=== PATIENT | male | born 1950 | race American Indian/Alaskan Native ===

== ENCOUNTER 2017-11-17 16:59 | Emergency (ER) | payer SELFPAY ==
[2017-11-17 17:21] VITALS: BP 132/67
[2017-11-17 18:24] LABS: Basophils % (Auto) 0.5 % (0.0-1.8); Eosinophils % (Auto) 0.4 % (0.0-4.3); Hematocrit 43.5 % (35.5-45.6); Lymphocytes # (Auto) 1.4 K/mm3 (1.2-5.4); Lymphocytes % (Auto) 17.6 % (13.4-35.0); Mean Corpuscular HGB Conc 32 % (32-34); Mean Corpuscular Hemoglobin 28 pg (28-32); Mean Corpuscular Volume 86 fl (84-94); Monocytes # (Auto) 0.9 K/mm3 (0.0-0.8); Monocytes % (Auto) 11.9 % (0.0-7.3); Platelet Count 183 K/mm3 (140-440); Red Blood Count 5.04 M/mm3 (3.65-5.03); Red Cell Distribution Width 14.8 % (13.2-15.2)
--- NOTE | 2017-11-17 18:45 | Cat Scan Report ---
FINAL REPORT PROCEDURE: CT HEAD/BRAIN WO CON TECHNIQUE: Computerized tomography of the head was performed without contrast material. HISTORY: . Neurological deficits COMPARISON: No prior studies are available for comparison. FINDINGS: There is no CT evidence of intracranial mass, hemorrhage, acute territorial infarction, or hydrocephalus. The intracranial arteries are symmetric in density. The calvarium is intact. The visualized paranasal sinuses and mastoids are aerated. IMPRESSION: No CT evidence of acute intracranial abnormality
[2017-11-17 18:48] LABS: Calcium 9.1 mg/dL (8.4-10.2)
[2017-11-17 22:01] LABS: Bilirubin,Urine NEG (Negative); Blood,Urine SM (Negative); Color,Urine Yellow (Yellow); Mucus,Urine FEW /HPF; Nitrite,Urine NEG (Negative); Protein,Urine <15 mg/dL mg/dL (Negative); Urobilinogen,Urine < 2.0 mg/dL (<2.0)
== END 2017-11-17 18:35 | disposition left against medical advice (07) ==
LOC: ED 16:59
DX: Z53.21 Procedure and treatment not carried out due to patient leaving prior to being seen by health care provider (principal)
CPT/HCPCS: 36415; 70450; 80053; 81001; 85025

== ENCOUNTER 2017-11-18 12:41 | Emergency (ER) | payer SELFPAY ==
[2017-11-18 13:22] VITALS: BP 119/75
== END 2017-11-18 16:30 | disposition left against medical advice (07) ==
LOC: ED 12:41
DX: R20.0 Anesthesia of skin (principal); Z53.21 Procedure and treatment not carried out due to patient leaving prior to being seen by health care provider

== ENCOUNTER 2020-10-01 00:16 | Emergency (ER) | payer MEDICARE ==
--- NOTE | 2020-10-01 00:30 | Emergency Department Report ---
ED CPR HPI - General Chief Complaint: Cardiac Arrest/CPR Stated Complaint: UNRESPONSIVE Time Seen by Provider: 10/01/20 00:16 Source: EMS Mode of arrival: Stretcher Limitations: Altered Mental Status, Physical Limitation - History of Present Illness Initial Comments: Patient is a 70-year-old male that presents emergency room and a cardiac arrest. Patient brought in by EMS. EMS states that the downtime is unknown. Last known well time was 11 PM. Patient brought in by EMS if EMS initiated CPR. EMS intubated the patient and gave 3 rounds of epi. Patient has been asystole on the monitor. MD Complaint: found unresponsive -: unknown Place: home Bystander CPR Performed: No AED Applied by Bystander/Design Assembler: No Shock Advised: No Initial Findings in the Field: unresponsive, no respirations, no pulse ROSC in the Field: No Associated Injuries: No Treatments Prior to Arrival: intubation, BMV, chest compressions, epinephrine mgs # - Related Data Allergies Allergy/AdvReac Type Severity Reaction Status Date / Time No Known Allergies Allergy Unverified 11/17/17 17:17 ED Review of Systems ROS: Stated complaint: UNRESPONSIVE Other details as noted in HPI Comment: Unobtainable due to pts medical conditions ED Past Medical Hx - Past Medical History Previous Medical History?: Yes Hx Hypertension: Yes Hx Diabetes: Yes Additional medical history: high cholesterol, 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 - Surgical History Past Surgical History?: No - Family History Family history: no significant - Social History Smoking Status: Never Smoker Substance Use Type: None ED Physical Exam - General Limitations: Altered Mental Status, Physical Limitation General appearance: obtunded - Head Head exam: Present: atraumatic, normocephalic - Eye Eye exam: Present: normal appearance, other (Posterior fixed and dilated) - ENT ENT exam: Present: mucous membranes moist - Neck Neck exam: Present: normal inspection - Respiratory Respiratory exam: Present: decreased breath sounds, other (Patient is intubated and placement verified with bilateral breath sounds.) - Cardiovascular Cardiovascular Exam: Present: other (No pulse and no cardiac motion noted.) - GI/Abdominal GI/Abdominal exam: Present: soft - Rectal Rectal exam: Present: deferred - Extremities Exam Extremities exam: Present: normal inspection (Except for left IO noted) - Back Exam Back exam: Present: normal inspection - Neurological Exam Neurological exam: Present: altered - Skin Skin exam: Present: warm, dry, normal color. Absent: rash ED Course - Reevaluation(s) Reevaluation #1: Patient arrived with EMS. Report received. Patient transferred to our rney and CPR was continued. Patient connected to a yarn spinner. Patient asystole on the monitor. 10/01/20 00:16 Reevaluation #2: Resuscitation efforts are terminated. Resuscitation efforts were terminated due to no signs of life. No pulse. Asystole on the monitor. See code note. Code ran in accordance with ACLS guidelines. 10/01/20 00:20 Reevaluation #3: Family meeting done. Family informed. All questions and concerns addressed. 10/01/20 00:30 ED Medical Decision Making - Medical Decision Making Patient is a 70-year-old male that presents emergency room and a cardiac arrest. Patient had many rounds of CPR and medications. Patient given multiple medications. Patient's code ran in accordance with ACLS guidelines. Resusc itation efforts were terminated due to no signs of life. See code note. - Differential Diagnosis Cardiac arrest, [place], Critical Care Time: Yes Critical care time in (mins) excluding proc time.: 35 Critical care attestation.: If time is entered above; I have spent that time in minutes in the direct care of this critically ill patient, excluding procedure time. Critical Care Time: 35 minutes ED Disposition Clinical Impression: Cardiac arrest Disposition: DC-20 Is pt being admited?: No Does the pt Need Aspirin: No Condition: Critical Time of Disposition: 00:56
[2020-10-01] MEDS ORDERED: SODIUM BICARB 8.4% 50 MEQ/50 ML SYRINGE IV ONE (13:19)
[2020-10-01] MEDS ORDERED: EPINEPHrine 1 MG/10 ML SYRINGE ONE (13:19)
== END 2020-10-01 03:02 ==
LOC: ED 00:16
DX: I46.9 Cardiac arrest, cause unspecified (principal); I10 Essential (primary) hypertension; E11.9 Type 2 diabetes mellitus without complications
CPT/HCPCS: 92950; 99291; J0171